=== PATIENT | female | born 1980 ===

== ENCOUNTER 2017-01-21 15:11 | Emergency (ER) | payer SELFPAY ==
--- NOTE | ~2017-01-21 | ER ---
PATIENT'S NAME: GEE HERNANDEZ [facility] AGE: 36 Y [address] ROOM: [place] [address] LOCATION: ED ADMIT DATE: 01/21/2017 ER/Outpatient Report DISCHARGE DATE: 01/21/2017 FAMILY PHYSICIAN: Rafaela Alfaro MD ATTENDING PHYSICIAN: Jean Watts Time of Arrival: 1511 hours. Time of Evaluation: 1520 hours. CHIEF COMPLAINT: Dry skin, possible bug bites, hypothyroid. HISTORY OF PRESENT ILLNESS: This is a 36-year-old female, who presents to the ER, who states that she has very dry skin and she itches everywhere. She states that her son has had some bug bites and she is not for sure if she has any or not. She states that she also has a history of hypothyroidism and has been off her medications for several months. She did not follow up with her primary care physician because her primary care physician actually retired and she does not currently have any money to fill her prescriptions. ALLERGIES: NO KNOWN ALLERGIES. MEDICATIONS: None. PAST MEDICAL HISTORY: Hypothyroidism, which she is off her medications. PAST SURGERIES: . SOCIAL HISTORY: Smokes cigarettes. Denies any drug or alcohol use. REVIEW OF SYSTEMS: A 10-point review of systems was completed and was negative with the exception of those discussed in the HPI. PHYSICAL EXAMINATION: VITAL SIGNS: Weight 24 kg taken, blood pressure is 161/93, pulse 103, respirations 20, temperature 98.5 degrees tympanically, and saturations 99% on room air. Tucker Coma Score is 15. GENERAL: Alert, calm, well-developed female, in no acute distress. PATIENT'S NAME: GEE HERNANDEZ [facility] AGE: 36 Y [address] ROOM: [place] [address] LOCATION: ED ADMIT DATE: 01/21/2017 ER/Outpatient Report DISCHARGE DATE: 01/21/2017 FAMILY PHYSICIAN: Rafaela Alfaro MD ATTENDING PHYSICIAN: Jean Watts HEENT: Head: Normocephalic. Eyes: Pupils are equal and reactive to light. She does display moist mucous membranes. LUNGS: Clear to auscultation bilaterally. No wheezes or crackles. HEART: Regular rate and rhythm. EXTREMITIES: No clubbing or cyanosis. Has full range of motion of all limbs. She does have 1+ pitting edema in bilateral lower extremities. SKIN: She has very dry flaky skin in the upper and lower extremities. No bug bites were seen. No lesions or rashes were noted. LABORATORY DATA: The patient refused at this time. X-RAYS: None were done. IMPRESSION: 1. Dry skin. 2. History of hypothyroidism. ASSESSMENT AND PLAN: I did recommend the patient to get labs today, but the patient did not want to stick around for that at this time. She states that she will [facility]. I advised her to apply CeraVe lotion to her dry skin twice daily. She may take an antihistamine if she is having significant amount of itching. She needs to monitor her symptoms and follow up with her primary care physician as soon as she can. I did give her a card for the healthcare clinic here in [facility]. The patient understands and agrees with care. ROSA M CHOW PA-C FOR MD SONYA CARLISLE/mandie /[id number] d: 01/21/17 2324 t: 01/22/17 1738, OUTPATIENT REPORT
== END 2017-01-21 15:50 | disposition disaster alternative care site (69) ==
LOC: GMED 15:11
DX: L85.3 Xerosis cutis (principal); F17.210 Nicotine dependence, cigarettes, uncomplicated; Z86.39 Personal history of other endocrine, nutritional and metabolic disease; E03.9 Hypothyroidism, unspecified

== ENCOUNTER 2017-02-02 19:04 | Emergency (ER) | payer MEDICAID ==
--- NOTE | ~2017-02-02 | ER ---
PATIENT'S NAME: GEE HERNANDEZ [facility] AGE: 36 Y [address] ROOM: [place] [address] LOCATION: ED ADMIT DATE: 02/02/2017 ER/Outpatient Report DISCHARGE DATE: 02/02/2017 FAMILY PHYSICIAN: Rafaela Alfaro MD ATTENDING PHYSICIAN: Spencer Soni Time Of Patient Arrival: 1904 hours. Time Of Patient Evaluation: 1915 hours. CHIEF COMPLAINT: Severe edema and history of hypothyroidism. HISTORY OF PRESENT ILLNESS: This is a 36-year-old female, who presents to the ER, states that she has a history of hypothyroidism and has not taken her medications for several months. The patient states that she has had increased swelling in her bilateral lower extremities and feels like her swelling is all over her body now. She states that she lost her insurance for a while and that is what she did not take her medications, but she has currently got her insurance back. The last time she was seen here in the emergency room, she states she never did follow up with her primary care physician, but now, she does have an appointment to see someone at [facility] next week. She denies any other recent illnesses. No fever or chills, no shortness of breath. The patient states that she does have significant swelling in her body that she feels like she is having some numbness in her left pinky finger and ring finger. ALLERGIES: NO KNOWN ALLERGIES. MEDICATIONS: Please see medication list in nurse's notes. PAST MEDICAL HISTORY: Hypothyroidism. She has had a history of a thyroid storm. SOCIAL HISTORY: She smokes a pack a day. Denies any drug or alcohol use. REVIEW OF SYSTEMS: A 10-point review of system was completed and was negative with the exception of those discussed in the HPI. PHYSICAL EXAMINATION: VITAL SIGNS: Blood pressure is 140/90, pulse 108, respirations 16, temperature 98 degrees tympanically, and saturations 100% on room air. PATIENT'S NAME: GEE HERNANDEZ [facility] AGE: 36 Y [address] ROOM: [place], [place] [address] LOCATION: ED ADMIT DATE: 02/02/2017 ER/Outpatient Report DISCHARGE DATE: 02/02/2017 FAMILY PHYSICIAN: Rafaela Alfaro MD ATTENDING PHYSICIAN: Spencer Soni Nancy Coma Score is 15. GENERAL: Alert, calm, well-developed female, in no acute distress. HEENT: Head: Normocephalic. She does display moist mucous membranes. NECK: Supple. No lymphadenopathy. LUNGS: Clear to auscultation bilaterally. HEART: Slightly tachycardic. Normal rhythm. EXTREMITIES: No clubbing. She does have 2+ pitting edema to her bilateral lower extremities. She has good pedal pulses. EXTREMITIES: Upper extremities, she has good pulses bilaterally in upper extremities. She states she has a numbing sensation to her left pinky and ring finger. She has good capillary refill. Full range of motion of all of her limbs. LABORATORY DATA: White blood cells 7.3, hemoglobin is 10.6, platelets 294, AST is 4.7. CMS: Potassium is 3.5, otherwise unremarkable. Free T4 is 0.3. TSH is 183.0. HCG quant is less than 1.0. IMPRESSION: Hypothyroidism. PLAN: I discussed the patient's care with Dr. Soni. I did call [facility] to see when the last time she filled her medications, wherein, they state that they have not filled any medications for her since this same time last year. I am going to start her on levothyroxine 150 mcg p.o. once a day and I am going to give her 15 pills. I am also going to start her on furosemide 40 mg 1 p.o. daily x5 days along with potassium 1 p.o. daily x5 days. She needs to monitor her symptoms closely, continue to push fluids, and she needs to follow up with her primary care physician as soon as possible. The patient understands and agrees with care. ROSA M CHOW PA-C FOR DO SONYA CHINCHILLA/mandie /[id number] d: t: 02/04/17 1301, OUTPATIENT REPORT
[2017-02-02 19:57] LABS: BASOPHIL # 0.1 K/uL (0.0-0.2); BASOPHIL % 1.1 %; EOSINOPHIL # 0.2 K/uL (0.0-0.5); EOSINOPHIL % 2.2 %; HEMATOCRIT 33.2 % (33.0-46.0); HEMOGLOBIN 10.6 g/dL (11.0-15.0); IMMATURE GRANULOCYTE % 0.3 %; LYMPHOCYTE # 1.7 K/uL (0.8-4.0); LYMPHOCYTE % 23.7 %; MCHC 31.9 gm/dL (32.0-36.5); MCV 87.8 fl (83.0-98.0); MONOCYTE # 0.6 K/uL (0.0-1.0); MONOCYTE % 8.5 %; MPV 9.7 fl (9.4-12.4); NEUTROPHIL # (ANC) 4.7 K/uL (1.8-7.8); NEUTROPHIL % 64.2 %; NRBC % 0 /100WBC (0-0.00); PLATELET COUNT 294 K/uL (150-450); RBC 3.78 M/uL (3.50-5.50); RDW-CV 16.6 % (11.9-14.6); WBC 7.3 K/uL (4.0-11.0)
[2017-02-02 20:18] LABS: ALBUMIN 3.6 gm/dL (3.5-5.0); ALK PHOS 57 IU/L (33-138); ALT 16 IU/L (12-78); ANION GAP 11.5 (10.0-19.0); AST 19 IU/L (10-40); BLOOD UREA NITROGEN 13 mg/dL (6-24); CALCIUM 8.4 mg/dL (8.5-10.5); CHLORIDE 106 mMol/L (96-110); CO2 26 mMol/L (22-32); ESTIMATED GFR (MDRD EQUATION) > 60; POTASSIUM 3.5 mMol/L (3.7-5.1); SODIUM 140 mMol/L (135-145); TOTAL BILIRUBIN 0.2 mg/dL (0.0-1.5); TOTAL PROTEIN 7.9 g/dL (6.0-8.4)
== END 2017-02-02 21:12 ==
LOC: GMED 19:04
PROVIDERS: Emergency Medicine
DX: E03.9 Hypothyroidism, unspecified (principal); F17.210 Nicotine dependence, cigarettes, uncomplicated

== ENCOUNTER 2017-02-07 20:12 | Emergency (ER) | payer MEDICAID ==
--- NOTE | ~2017-02-07 | ER ---
PATIENT'S NAME: GEE TAYLOR [facility] AGE: 36 Y [address] ROOM: [place] [address] LOCATION: [facility] ADMIT DATE: 02/07/2017 ER/Outpatient Report DISCHARGE DATE: 02/07/2017 FAMILY PHYSICIAN: Physician, Unknown ATTENDING PHYSICIAN: Isaac Engle ADDENDUM: Ms. Taylor has severe hypothyroidism. She has had some laboratory and clinical deterioration since her last ER visit. She has been taking her Lasix and her levothyroxine. However, her TSH continues to elevate. She does not have the clinical picture consistent with myxedema coma. However, she is very symptomatic. For that reason, I will give her a dose of IV levothyroxine as I am concerned that she is not absorbing it well. A 75 mcg was given, she was observed for an hour, and she had actually improvement in her overall condition subjectively. She then was discharged home. I am recommending she have a repeat injection of levothyroxine within 24 to 48 hours. Order was written for this. She should return immediately if worse, any mental status changes, or the feelings of any other concerning signs or symptoms. All questions were answered and the patient was discharged in good condition. MD ZELALEM STANFORD/mandie /[id number] d: 02/08/17539 t: 02/12/17 1005, OUTPATIENT REPORT
--- NOTE | ~2017-02-07 | ER ---
PATIENT'S NAME: GEE HERNANDEZ [facility] AGE: 36 Y [address] ROOM: [place] [address] LOCATION: ED ADMIT DATE: 02/07/2017 ER/Outpatient Report DISCHARGE DATE: 02/07/2017 FAMILY PHYSICIAN: Physician, Unknown ATTENDING PHYSICIAN: Isaac Engle Time of Arrival: 2014 hours. Time of Evaluation: 2020. CHIEF CONCERN: Swelling. HISTORY OF PRESENT ILLNESS: The patient states on 02/02/2017, she had extreme swelling of her legs. She was diagnosed with hypothyroidism at that time. She was given a prescription for Synthroid 150 mcg to take daily as well as Lasix and potassium. She states she has been taking the medication as prescribed, but her symptoms are getting worse instead of better. She feels as though she has some swelling of her neck tonight. She has swelling and burning of her legs and having generalized low back pain. She feels like her abdomen was swollen. She states in general she just does not feel well at all. She was quite chilled, but has not had a fever. ALLERGIES: NO KNOWN ALLERGIES. CURRENT MEDICATIONS: On the chart and reviewed by me. PAST MEDICAL HISTORY: Hypothyroidism. PAST SURGERIES: She did have her thyroid radiated. SOCIAL HISTORY: She smokes half pack per day and has for the past 21 years. Denies use of drugs or alcohol. REVIEW OF SYSTEMS: All negative other than those mentioned in the HPI. She states she has not been seen by her primary provider this week as recommended. PHYSICAL EXAMINATION: VITAL SIGNS: Weight 90 kg. Blood pressure 128/66, pulse of 97, respirations PATIENT'S NAME: GEE HERNANDEZ [facility] AGE: 36 Y [address] ROOM: [place], [place] [address] LOCATION: ED ADMIT DATE: 02/07/2017 ER/Outpatient Report DISCHARGE DATE: 02/07/2017 FAMILY PHYSICIAN: Physician, Unknown ATTENDING PHYSICIAN: Isaac Engle 16, temperature of 97.8, O2 saturation 100% on room air. GENERAL: She is awake, alert, and oriented x4. SKIN: [place], warm, and dry. RESPIRATIONS: Even and nonlabored. HEENT: TMs are clear. Nasal is clear. Oropharynx is clear. NECK: Supple. No lymphadenopathy. NECK: Tender to palpate. LUNGS: Lung sounds are clear throughout. HEART: Regular rate and rhythm. ABDOMEN: Soft, nondistended. Bowel sounds are present. EXTREMITIES: She does have bilateral pedal edema. Strong pedal pulses. LABORATORY DATA: CBC was drawn. Her white count was 7.7, hemoglobin 10.2 with hematocrit of 32, sedimentation rate was 42. Chem panel: Sodium is 142, potassium 3.5, and chloride 107. BUN is 18 with creatinine of 1.1. GFR was 57. CRP was normal. Free T4 of 0.5. TSH is 194 which is up from 186. ProBNP is 50. We did draw for T3, but unfortunately that has to be sent out and could not be run tonight. EMERGENCY DEPARTMENT COURSE: I did discuss the patient with Dr. Engle. He did evaluate the patient and discussed the patient with Dr. Su. Saline lock was initiated and as written by Dr. Engle, the patient was given levothyroxine 75 mcg IV for severe hypothyroidism. She tolerated that well. IMPRESSION: Severe hypothyroidism. PLAN: Home, rest. She is to return tomorrow night 02/08/17 for a repeat of the IV levothyroxine and then follow up with her primary provider on Friday. The patient is aware of plan of care and agrees with the plan. GERALDO OLIVIER APRN FOR MD MUSTAPHA STANFORD/mandie /[id number] d: 02/08/17 0351 t: 02/12/17 1002, OUTPATIENT REPORT
[2017-02-07 20:47] LABS: BASOPHIL # 0.1 K/uL (0.0-0.2); BASOPHIL % 0.8 %; EOSINOPHIL # 0.2 K/uL (0.0-0.5); EOSINOPHIL % 2.6 %; HEMOGLOBIN 10.2 g/dL (11.0-15.0); IMMATURE GRANULOCYTE % 0.4 %; LYMPHOCYTE # 1.9 K/uL (0.8-4.0); LYMPHOCYTE % 24.1 %; MCH 27.9 pg (27.0-34.0); MCHC 31.9 gm/dL (32.0-36.5); MCV 87.7 fl (83.0-98.0); MONOCYTE # 0.5 K/uL (0.0-1.0); MONOCYTE % 6.9 %; MPV 9.7 fl (9.4-12.4); NEUTROPHIL % 65.2 %; NRBC % 0 /100WBC (0-0.00); PLATELET COUNT 312 K/uL (150-450); RBC 3.65 M/uL (3.50-5.50); RDW-CV 15.5 % (11.9-14.6); WBC 7.7 K/uL (4.0-11.0)
[2017-02-07 21:08] LABS: ALBUMIN 3.8 gm/dL (3.5-5.0); ALK PHOS 60 IU/L (33-138); ALT 19 IU/L (12-78); ANION GAP 8.5 (10.0-19.0); AST 21 IU/L (10-40); BLOOD UREA NITROGEN 18 mg/dL (6-24); CALCIUM 8.6 mg/dL (8.5-10.5); CHLORIDE 107 mMol/L (96-110); CO2 30 mMol/L (22-32); CREATININE 1.1 mg/dL (0.5-1.1); ESTIMATED GFR (MDRD EQUATION) 57; POTASSIUM 3.5 mMol/L (3.7-5.1); SODIUM 142 mMol/L (135-145); TOTAL PROTEIN 8.3 g/dL (6.0-8.4)
[2017-02-07 21:12] LABS: TOTAL BILIRUBIN 0.3 mg/dL (0.0-1.5)
== END 2017-02-07 23:52 | disposition disaster alternative care site (69) ==
LOC: GMED 20:12
PROVIDERS: Nurse Practitioner Family
DX: E03.9 Hypothyroidism, unspecified (principal); F17.210 Nicotine dependence, cigarettes, uncomplicated; Z79.899 Other long term (current) drug therapy

== ENCOUNTER → 2017-02-08 | Outpatient (CLI) | payer MEDICAID | END | disposition disaster alternative care site (69) | LOC: GMIS 22:04 | DX: E03.9 Hypothyroidism, unspecified (principal) ==